=== PATIENT | male | born 1985 | race Asian ===

== ENCOUNTER 2020-11-13 10:11 | Inpatient (IN) | payer MEDICAID ==
[~2020-11-13] VITALS: Ht 170.2 cm; Wt 68.2 kg
[2020-11-13 10:42] LABS: CLARITY,URINE CLEAR (Clear); COLOR,URINE YELLOW (Yellow); GLUCOSE, URINE NEGATIVE (Neg); KETONES,URINE NEGATIVE (Neg); LEUKOCYTE ESTERASE ,URINE NEGATIVE (Neg); NITRITES, URINE NEGATIVE (Neg); OCCULT BLOOD,URINE TRACE-LYSED (Neg); PROTEIN,URINE TRACE mg/dl (Neg)
[2020-11-13 10:43] LABS: MEAN CORPUSCULAR HGB CONC 33.4 g/dL (33.0-36.5)
[2020-11-13 10:45] LABS: BASOPHILS % (AUTO) 0.4 % (0-1); EOSINOPHILS # (AUTO) 0.2 X10'3 (0-0.9); MONOCYTES # (AUTO) 0.9 X10'3 (0-0.9)
[2020-11-13 10:48] LABS: UA COLLECTION TYPE VOIDED
[2020-11-13 10:49] LABS: MUCUS STRANDS MANY /LPF (Neg); SQUAMOUS EPITHELIAL CELL,UR FEW /LPF (FEW); TRANSITIONAL EPI CELLS,URINE FEW /HPF
[2020-11-13 10:50] LABS: BACTERIA,URINE NONE SEEN /HPF (Neg); RBC,URINE 0-2 /HPF (0-2); WBC,URINE NONE SEEN /HPF (0-4)
[2020-11-13 10:53] LABS: EOSINOPHILS % (AUTO) 2.2 % (0-6); HEMATOCRIT 42.4 % (42.0-52.0); HEMOGLOBIN 14.1 g/dl (14.0-17.9); LYMPHOCYTES # (AUTO) 2.4 X10'3 (1.1-4.8); LYMPHOCYTES % (AUTO) 28.1 % (21-51); MEAN CORPUSCULAR HEMOGLOBIN 30.7 PG (27.0-31.0); MEAN PLATELET VOLUME 7.5 FL (7.4-10.4); NEUTROPHILS % (AUTO) 58.3 % (42-75); PLATELET COUNT 241 X10'3 (140-440); RED BLOOD COUNT 4.61 X10'6 (4.70-6.10); RED CELL DISTRIBUTION WIDTH 12.7 % (11.5-14.5); WHITE BLOOD COUNT 8.6 X10'3 (4.5-11.0)
[2020-11-13 11:01] LABS: ALANINE AMINOTRANSFERASE 53 U/L (12-78); ALBUMIN 3.6 G/DL (3.4-5.0); ALBUMIN/GLOBULIN RATIO 0.9 (1.1-1.5); ALKALINE PHOSPHATASE 75 IU/L (46-116); ANION GAP 8 (8-16); ASPARTATE AMINO TRANSFERASE 29 U/L (10-37); BILIRUBIN,TOTAL 0.8 MG/DL (0.1-1.0); BLOOD UREA NITROGEN 10 MG/DL (7-18); BUN/CREATININE RATIO 12.2 (5.4-32.0); CALCIUM 8.2 MG/DL (8.5-10.1); CHLORIDE 105 MMOL/L (99-107); CREATININE 0.82 MG/DL (0.60-1.10); GLUCOSE 118 MG/DL (70-104); LIPASE 81 U/L (73-393); POTASSIUM 3.6 MMOL/L (3.5-5.1); SODIUM 138 MMOL/L (135-145); TOTAL CARBON DIOXIDE 25.5 MMOL/L (24-32); TOTAL PROTEIN 7.8 G/DL (6.4-8.2); eGFR > 90 ML/MIN
[2020-11-13] MEDS ORDERED: SIME80TA73 PO (14:32)
[2020-11-13] MEDS ORDERED: FAMO20TA47 PO (14:32)
[2020-11-13] MEDS ORDERED: HYDROcodone/acetaminophen 10/325mg tab PO PRN (14:40)
[2020-11-13] MEDS ORDERED: ondansetron/PF 4mg/2ml inj IV PRN (14:40)
[2020-11-13] MEDS ORDERED: acetaminophen 325mg tablet PO PRN ×2 (14:40)
[2020-11-13] MEDS ORDERED: magnesium Cl slow-release 64mg tablet PO PRN (14:40)
[2020-11-13] MEDS ORDERED: mag hydrox/Alum hydrox/simeth 30ml oral suspension PO PRN (14:40)
[2020-11-13] MEDS ORDERED: magnesium 2GM in 50ml NS 50 ML IV PRN (14:40)
[2020-11-13] MEDS ORDERED: potassium Cl 20 mEq SR tablet PO PRN ×2 (14:40)
[2020-11-13] MEDS ORDERED: LORazepam 2 mg/ml vial IV PRN (14:40)
[2020-11-13] MEDS ORDERED: magnesium 4gm in 100ml NS 100 ML IV PRN (14:40)
[2020-11-13] MEDS ORDERED: LORazepam 1 MG tablet PO PRN (14:40)
[2020-11-13] MEDS ORDERED: morphine 2 MG/ML inj. syringe IV PRN ×2 (14:40)
[2020-11-13] MEDS ORDERED: HYDROcodone/acetaminophen 5mg/325mg tablet PO PRN (14:40)
[2020-11-13] MEDS ORDERED: magnesium hydroxide 30ml (MOM) UD suspension PO PRN (14:40)
[2020-11-13] MEDS ORDERED: potassium Cl 40MEQ/1/2NS 520ml 520 ML IV PRN ×2 (14:40)
[2020-11-13] MEDS: metroNIDAZOLE-Flagyl 500mg/NS 100 ML IV SCH (16:15)
[2020-11-13] MEDS: normal saline 1000ml 1,000 ML IV SCH (16:15)
[2020-11-13] MEDS: docusate sod 100mg capsule PO SCH (20:00)
[2020-11-13] MEDS: K and/or MAG REPLACEMENT MC SCH (20:00)
[2020-11-13] MEDS: ciprofloxacin lact 400MG/200ML 200 ML IV SCH (20:00)
[2020-11-13] MEDS: heparin, porcine 5000 units/ml vial SQ SCH (20:00)
[2020-11-13] MEDS ORDERED: temazepam 15mg capsule PO PRN (21:00)
[2020-11-14] MEDS: normal saline 1000ml 1,000 ML IV SCH ×2 (00:32→09:00)
[2020-11-14] MEDS: metroNIDAZOLE-Flagyl 500mg/NS 100 ML IV SCH ×3 (00:32→16:00)
[2020-11-14 04:16] LABS: BASOPHILS % (AUTO) 0.4 % (0-1); EOSINOPHILS # (AUTO) 0.2 X10'3 (0-0.9); EOSINOPHILS % (AUTO) 2.6 % (0-6); HEMATOCRIT 38.1 % (42.0-52.0); HEMOGLOBIN 12.6 g/dl (14.0-17.9); LYMPHOCYTES # (AUTO) 2.4 X10'3 (1.1-4.8); LYMPHOCYTES % (AUTO) 34.7 % (21-51); MEAN CORPUSCULAR HEMOGLOBIN 30.5 PG (27.0-31.0); MEAN CORPUSCULAR HGB CONC 33.1 g/dL (33.0-36.5); MEAN PLATELET VOLUME 7.2 FL (7.4-10.4); MONOCYTES # (AUTO) 0.7 X10'3 (0-0.9); MONOCYTES % (AUTO) 10.1 % (2-12); NEUTROPHILS # (AUTO) 3.6 X10'3 (1.8-7.7); NEUTROPHILS % (AUTO) 52.2 % (42-75); PLATELET COUNT 209 X10'3 (140-440); RED BLOOD COUNT 4.14 X10'6 (4.70-6.10); RED CELL DISTRIBUTION WIDTH 12.7 % (11.5-14.5); WHITE BLOOD COUNT 6.8 X10'3 (4.5-11.0)
[2020-11-14 04:45] LABS: ALANINE AMINOTRANSFERASE 50 U/L (12-78); ALBUMIN 3.3 G/DL (3.4-5.0); ALBUMIN/GLOBULIN RATIO 0.9 (1.1-1.5); ALKALINE PHOSPHATASE 73 IU/L (46-116); ANION GAP 10 (8-16); ASPARTATE AMINO TRANSFERASE 28 U/L (10-37); BILIRUBIN,TOTAL 0.6 MG/DL (0.1-1.0); BLOOD UREA NITROGEN 10 MG/DL (7-18); BUN/CREATININE RATIO 12.3 (5.4-32.0); CALCIUM 8.1 MG/DL (8.5-10.1); CHLORIDE 108 MMOL/L (99-107); CREATININE 0.81 MG/DL (0.60-1.10); GLUCOSE 101 MG/DL (70-104); MAGNESIUM 2.5 MG/DL (1.5-2.4); POTASSIUM 3.4 MMOL/L (3.5-5.1); SODIUM 143 MMOL/L (135-145); TOTAL CARBON DIOXIDE 25.3 MMOL/L (24-32); TOTAL PROTEIN 7.1 G/DL (6.4-8.2); eGFR > 90 ML/MIN
--- NOTE | 2020-11-14 06:47 | NUR ---
patient received on bed awake,denies discomfort.
--- NOTE | 2020-11-14 06:48 | NUR ---
patient up to the bathroom with steady gait.instructed to changed into a hospital gown.
[2020-11-14] MEDS ORDERED: pantoprazole 40mg Tablet.DR PO SCH (07:30)
[2020-11-14] MEDS: docusate sod 100mg capsule PO SCH (08:00)
[2020-11-14] MEDS: K and/or MAG REPLACEMENT MC SCH (08:00)
[2020-11-14] MEDS: ciprofloxacin lact 400MG/200ML 200 ML IV SCH (08:57)
[2020-11-14] MEDS: heparin, porcine 5000 units/ml vial SQ SCH (08:58)
[2020-11-14] MEDS ORDERED: diatrozoate meglu/diatrozoate sod (37% iodine) 120ML oral solution PO SCH (10:20)
--- NOTE | 2020-11-14 10:23 | NUR ---
Dr. Corral at bedside,made aware that K is 3.4 and no prn as well as pt is npo, said "that's ok" no med order at this time.
[2020-11-14] MEDS ORDERED: diatr meglu/diatrizoate 30ml oral sol.-(3 dose) bottle PO ONE ×2 (10:40→14:40)
--- NOTE | 2020-11-14 13:02 | NUR ---
second gastrogafin given to pt with 240ml water.
[2020-11-14] MEDS ORDERED: diatrozoate meglu/diatrozoate sod (37% iodine) 120ML oral solution PO ONE (14:40)
[2020-11-14 14:42] VITALS: BP 149/96
--- NOTE | 2020-11-14 15:03 | NUR ---
Third dose of gastroview administered per MD orders.
--- NOTE | 2020-11-14 15:20 | NUR ---
Pt arrived to unit via WC from ED via CT. Bed low, Call light in reach. Discussed POC, Pt verbalizes understanding.
[2020-11-14] MEDS ORDERED: METR-159 PO (16:22)
[2020-11-14] MEDS ORDERED: PANT40TA54 PO (16:22)
[2020-11-14] MEDS ORDERED: CIPR-259 PO (16:22)
[2020-11-14] MEDS ORDERED: diatr meglu/diatrizoate 30ml oral sol.-(3 dose) bottle PO PRN (16:35)
== END 2020-11-14 17:15 | disposition home or self-care (01) | DRG 249 ==
LOC: ER 10:12 → ED HOLD 14:44 → UNDOADMIN 14:53 → SUR 3N 11-14 15:22
PROVIDERS: ADMIT Internal Medicine; ATTEND Internal Medicine
DX: K52.9 Noninfective gastroenteritis and colitis, unspecified (principal); F12.90 Cannabis use, unspecified, uncomplicated; Z20.822 Contact with and (suspected) exposure to COVID-19; Z87.891 Personal history of nicotine dependence; Z88.0 Allergy status to penicillin; Z72.89 Other problems related to lifestyle
CPT/HCPCS: 36415; 74176; 80053; 81001; 83605; 83690; 83735; 85025; 85610; 87040; 87081; 87635; 93005; 99285; G0378; J0744; J1644; J3490; J7030; Q9963